=== PATIENT | male | born 2000 | race Hispanic/Latino ===

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

== ENCOUNTER 2023-04-10 15:30 | Emergency (ER) | payer OTHER ==
[~2023-04-10] VITALS: Ht 175.3 cm; Wt 125.6 kg
[~2023-04-10 15:30] MED LIST: CEPHALEXIN500 MG PO
[2023-04-10 15:39] VITALS: O2SAT 100
[2023-04-10] MEDS ORDERED: ULTRAM 50MG50 MG PO (16:58)
== END 2023-04-10 17:35 | disposition home or self-care (01) ==
LOC: ER 15:48
DX: S82.62XA Displaced fracture of lateral malleolus of left fibula, initial encounter for closed fracture (principal); X50.1XXA Overexertion from prolonged static or awkward postures, initial encounter; Y93.01 Activity, walking, marching and hiking; Y92.89 Other specified places as the place of occurrence of the external cause
CPT/HCPCS: 99283